=== PATIENT | male | born 1955 | race African-American/Black ===

== ENCOUNTER 2017-02-24 17:55 | Inpatient (IN) | payer MEDICARE, MEDICAID ==
[~2017-02-24] VITALS: Ht 177.8 cm; Wt 92.5 kg
[~2017-02-24 17:55] MED LIST: COR12; DIGO125T82; FURO-151; LISI40TA4
[2017-02-25] MEDS ORDERED: NITROGLYCERIN OINT 1GM/INCH UDPKT TD STA (01:24)
[2017-02-25] MEDS ORDERED: ASPIRIN 81MG TABLET PO ONE (01:30)
[2017-02-25 01:51] LABS: BASOPHILS % 0.5 % (0.0-2.0); EOSINOPHILS % 2.5 % (0.0-5.0); HEMATOCRIT. 41.6 % (42.0-52.0); HEMOGLOBIN. 14.9 g/dL (14.0-18.0); INR 1.8; MEAN CORPUSCULAR HEMOGLOBIN 31.2 pg (28.0-32.0); MEAN CORPUSCULAR VOLUME 87.4 fL (80.0-94.0); MEAN PLATELET VOLUME 8.6 fl (7.4-10.4); MONOCYTES % 7.4 % (2.0-8.0); NEUTROPHILS % 56.6 % (40.0-76.0); PARTIAL THROMBOPLASTIN TIME 32.5 sec (24.0-34.0); PLATELET 177 x1000/uL (130-400); PROTHROMBIN TIME 19.1 sec; RED BLOOD CELL COUNT 4.77 mill/uL (4.7-6.1)
[2017-02-25 01:59] LABS: CARBON DIOXIDE 29 mEq/L (21-32); CHLORIDE 106 mEq/L (98-107); TROPONIN I 0.06 ng/mL (0.00-0.04)
[2017-02-25 02:12] LABS: DIGOXIN 0.4 ng/mL (0.9-2.0)
[2017-02-25 10:06] VITALS: BP 164/112
[2017-02-25] MEDS ORDERED: CLONIDINE 0.1MG TABLET PO PRN ×2 (10:45→11:15)
[2017-02-25] MEDS ORDERED: HYDRALAZINE 20MG/ML VIAL IV PRN (11:15)
[2017-02-25 11:54] VITALS: BP 150/115
[2017-02-25] MEDS: FUROSEMIDE 40MG/4ML VIAL IVP SCH ×2 (11:57→17:13)
[2017-02-25] MEDS: LISINOPRIL 20MG TABLET PO SCH ×2 (11:57→20:45)
[2017-02-25] MEDS: CARVEDILOL 12.5MG TABLET PO SCH ×2 (11:57→20:45)
[2017-02-25 11:58] LABS: CREATINE KINASE MB FRACTION 2.4 ng/mL (0.5-3.6); TROPONIN I 0.05 ng/mL (0.00-0.04)
[2017-02-25] MEDS: AMLODIPINE 2.5MG TABLET PO SCH ×2 (11:58→20:45)
[2017-02-25] MEDS: POTASSIUM CHLORIDE 20MEQ TABLET SR PO SCH ×2 (11:59→17:14)
[2017-02-25] MEDS ORDERED: WARF6TAB22 PO (12:12)
[2017-02-25 16:00] VITALS: BP 130/94
[2017-02-25] MEDS ORDERED: WARFARIN SODIUM 3MG TABLET PO NR (18:00)
[2017-02-25 20:00] VITALS: BP 145/96
[2017-02-25 20:13] LABS: CREATINE KINASE MB FRACTION 1.8 ng/mL (0.5-3.6); TROPONIN I 0.05 ng/mL (0.00-0.04)
[2017-02-26] VITALS (8 sets, daily range): BP systolic 125–156; BP diastolic 72–113
[2017-02-26 01:13] LABS: *AMPHETAMINES SCREEN URINE NEGATIVE (NEGATIVE); *BARBITURATES SCREEN URINE NEGATIVE (NEGATIVE); *BENZODIAZEPINES SCREEN URINE NEGATIVE (NEGATIVE); *COCAINE SCREEN URINE NEGATIVE (NEGATIVE); CANNABINOID URINE SCREEN NEGATIVE (NEGATIVE); METHADONE URINE SCREEN NEGATIVE (NEGATIVE); OPIATES URINE SCREEN NEGATIVE (NEGATIVE); PHENCYCLIDINE URINE SCREEN NEGATIVE (NEGATIVE)
[2017-02-26 06:37] LABS: BASOPHILS % 0.2 % (0.0-2.0); EOSINOPHILS % 2.3 % (0.0-5.0); HEMATOCRIT. 39.3 % (42.0-52.0); HEMOGLOBIN. 13.7 g/dL (14.0-18.0); LYMPHOCYTES % 25.2 % (20.0-50.0); MEAN CORPUSCULAR HEMOGLOBIN 30.5 pg (28.0-32.0); MEAN CORPUSCULAR VOLUME 87.7 fL (80.0-94.0); MEAN PLATELET VOLUME 8.9 fl (7.4-10.4); MONOCYTES % 6.5 % (2.0-8.0); NEUTROPHILS % 65.8 % (40.0-76.0); PLATELET 161 x1000/uL (130-400); RED BLOOD CELL COUNT 4.49 mill/uL (4.7-6.1); RED CELL DISTRIBUTION WIDTH 13.7 % (11.6-14.6)
[2017-02-26 07:06] LABS: D-DIMER < 0.19 mg/L FEU (<0.50); INR 1.8; PROTHROMBIN TIME 18.7 sec
[2017-02-26 07:57] LABS: CHLORIDE 104 mEq/L (98-107)
[2017-02-26 08:28] LABS: CARBON DIOXIDE 24 mEq/L (21-32); CREATINE KINASE 118 IU/L (39-308); CREATINE KINASE MB FRACTION 1.4 ng/mL (0.5-3.6); HDL CHOLESTEROL 36 mg/dL (40-59); LDL CHOLESTEROL 72 mg/dL (5-100); TROPONIN I 0.04 ng/mL (0.00-0.04)
[2017-02-26] MEDS: FUROSEMIDE 40MG/4ML VIAL IVP SCH ×2 (08:49→18:00)
[2017-02-26] MEDS: LISINOPRIL 20MG TABLET PO SCH ×2 (08:49→20:44)
[2017-02-26] MEDS: POTASSIUM CHLORIDE 20MEQ TABLET SR PO SCH ×2 (08:49→18:00)
[2017-02-26] MEDS: CARVEDILOL 12.5MG TABLET PO SCH ×2 (08:49→20:45)
[2017-02-26] MEDS: AMLODIPINE 2.5MG TABLET PO SCH ×2 (08:49→20:45)
[2017-02-26] MEDS ORDERED: POTASSIUM CHLORIDE 20MEQ TABLET SR PO NR (14:45)
[2017-02-26] MEDS ORDERED: WARFARIN SODIUM 3MG TABLET PO NR (18:00)
[2017-02-27] VITALS: BP 150/92
[2017-02-27 04:00] VITALS: BP 145/100
[2017-02-27] MEDS: FUROSEMIDE 40MG/4ML VIAL IVP SCH ×2 (06:23→16:01)
[2017-02-27 07:02] LABS: INR 1.6; PROTHROMBIN TIME 16.3 sec
[2017-02-27 07:12] LABS: BASOPHILS % 0.2 % (0.0-2.0); EOSINOPHILS % 2.8 % (0.0-5.0); HEMOGLOBIN. 14.2 g/dL (14.0-18.0); LYMPHOCYTES % 26.4 % (20.0-50.0); MEAN CORPUSCULAR HEMOGLOBIN 30.3 pg (28.0-32.0); MEAN CORPUSCULAR VOLUME 87.4 fL (80.0-94.0); MEAN PLATELET VOLUME 8.9 fl (7.4-10.4); MONOCYTES % 6.3 % (2.0-8.0); NEUTROPHILS % 64.3 % (40.0-76.0); PLATELET 175 x1000/uL (130-400); RED BLOOD CELL COUNT 4.69 mill/uL (4.7-6.1); RED CELL DISTRIBUTION WIDTH 13.7 % (11.6-14.6)
[2017-02-27 07:27] LABS: CARBON DIOXIDE 30 mEq/L (21-32); CHLORIDE 107 mEq/L (98-107)
[2017-02-27 08:00] VITALS: BP 145/85
[2017-02-27] MEDS: LISINOPRIL 20MG TABLET PO SCH ×2 (09:31→20:37)
[2017-02-27] MEDS: AMLODIPINE 2.5MG TABLET PO SCH (09:31)
[2017-02-27] MEDS: CARVEDILOL 12.5MG TABLET PO SCH ×2 (09:31→20:37)
[2017-02-27] MEDS: POTASSIUM CHLORIDE 20MEQ TABLET SR PO SCH ×2 (09:31→16:01)
[2017-02-27 12:00] VITALS: BP 132/74
[2017-02-27] MEDS ORDERED: REGADENOSON 0.4 MG/5 ML IV ONE (13:00)
[2017-02-27 16:00] VITALS: BP 118/72
[2017-02-27] MEDS: ENOXAPARIN 100MG/ML SYR SUBCUT SCH ×2 (16:01→23:00)
[2017-02-27] MEDS: ISOSORB DINIT/HYDRALAZINE HCL 20/37.5MG TABLET PO SCH ×2 (16:02→21:49)
[2017-02-27] MEDS ORDERED: WARFARIN SODIUM 7.5MG TABLET PO SCH (18:00)
[2017-02-27] MEDS: DIGOXIN 125MCG TABLET PO SCH (18:42)
[2017-02-27 20:00] VITALS: BP 122/72
[2017-02-27] MEDS: AMLODIPINE 5MG TABLET PO SCH (20:37)
[2017-02-28] VITALS: BP 109/67
[2017-02-28 04:00] VITALS: BP 116/72
[2017-02-28] MEDS: ISOSORB DINIT/HYDRALAZINE HCL 20/37.5MG TABLET PO SCH ×3 (05:43→21:46)
[2017-02-28] MEDS: FUROSEMIDE 40MG/4ML VIAL IVP SCH ×2 (06:47→17:19)
[2017-02-28] MEDS: ENOXAPARIN 100MG/ML SYR SUBCUT SCH ×2 (06:48→21:46)
[2017-02-28 06:57] LABS: INR 1.4; PROTHROMBIN TIME 14.2 sec
[2017-02-28 07:49] LABS: CARBON DIOXIDE 27 mEq/L (21-32); CHLORIDE 103 mEq/L (98-107)
[2017-02-28] MEDS ORDERED: REGADENOSON 0.4 MG/5 ML IV ONE (07:56)
[2017-02-28 08:00] VITALS: BP 134/73
[2017-02-28 08:19] LABS: BASOPHILS % 0.3 % (0.0-2.0); EOSINOPHILS % 2.2 % (0.0-5.0); HEMATOCRIT. 40.8 % (42.0-52.0); HEMOGLOBIN. 14.1 g/dL (14.0-18.0); LYMPHOCYTES % 29.8 % (20.0-50.0); MEAN CORPUSCULAR HEMOGLOBIN 30.6 pg (28.0-32.0); MEAN CORPUSCULAR VOLUME 88.4 fL (80.0-94.0); MONOCYTES % 6.1 % (2.0-8.0); NEUTROPHILS % 61.6 % (40.0-76.0); PLATELET 178 x1000/uL (130-400); RED BLOOD CELL COUNT 4.61 mill/uL (4.7-6.1); RED CELL DISTRIBUTION WIDTH 14.2 % (11.6-14.6)
[2017-02-28] MEDS: AMLODIPINE 5MG TABLET PO SCH ×2 (09:32→21:46)
[2017-02-28] MEDS: CARVEDILOL 12.5MG TABLET PO SCH ×2 (09:32→21:46)
[2017-02-28] MEDS: LISINOPRIL 20MG TABLET PO SCH ×2 (09:33→21:47)
[2017-02-28] MEDS: POTASSIUM CHLORIDE 20MEQ TABLET SR PO SCH ×2 (09:33→17:19)
[2017-02-28 12:00] VITALS: BP 109/72
[2017-02-28 16:00] VITALS: BP 123/85
[2017-02-28] MEDS: DIGOXIN 125MCG TABLET PO SCH (17:19)
[2017-02-28] MEDS ORDERED: WARFARIN SODIUM 7.5MG TABLET PO SCH (18:00)
[2017-02-28 20:00] VITALS: BP 142/90
[2017-03-01] VITALS (8 sets, daily range): BP systolic 99–159; BP diastolic 63–95
[2017-03-01] MEDS: ISOSORB DINIT/HYDRALAZINE HCL 20/37.5MG TABLET PO SCH (06:23)
[2017-03-01] MEDS: FUROSEMIDE 40MG/4ML VIAL IVP SCH (06:25)
[2017-03-01 06:40] LABS: INR 1.4; PROTHROMBIN TIME 14.6 sec
[2017-03-01] MEDS ORDERED: ATROPINE SULFATE 1MG/ML VIAL IV PRN (08:00)
[2017-03-01] MEDS ORDERED: ONDANSETRON HCL 4MG/2ML VIAL IV PRN (08:00)
[2017-03-01] MEDS: LISINOPRIL 20MG TABLET PO SCH (08:27)
[2017-03-01] MEDS: AMLODIPINE 5MG TABLET PO SCH ×2 (09:00→20:29)
[2017-03-01] MEDS: CARVEDILOL 12.5MG TABLET PO SCH ×2 (09:00→20:29)
[2017-03-01] MEDS: POTASSIUM CHLORIDE 20MEQ TABLET SR PO SCH ×2 (09:00→17:56)
[2017-03-01 09:14] LABS: HEMATOCRIT 42.2 % (42.0-52.0); HEMOGLOBIN 14.4 g/dL (14.0-18.0)
[2017-03-01] MEDS ORDERED: RIVAROXABAN 20 MG TABLET PO SCH (17:00)
[2017-03-01] MEDS: DIGOXIN 125MCG TABLET PO SCH (17:56)
[2017-03-01] MEDS: LISINOPRIL 10MG TABLET PO SCH (20:29)
[2017-03-02 00:14] VITALS: BP 145/89
[2017-03-02 04:00] VITALS: BP 154/84
[2017-03-02 06:23] LABS: BASOPHILS % 0.3 % (0.0-2.0); EOSINOPHILS % 1.4 % (0.0-5.0); HEMATOCRIT. 42.9 % (42.0-52.0); HEMOGLOBIN. 14.8 g/dL (14.0-18.0); LYMPHOCYTES % 22.6 % (20.0-50.0); MEAN CORPUSCULAR HEMOGLOBIN 30.7 pg (28.0-32.0); MEAN PLATELET VOLUME 8.7 fl (7.4-10.4); MONOCYTES % 5.1 % (2.0-8.0); NEUTROPHILS % 70.6 % (40.0-76.0); PLATELET 210 x1000/uL (130-400); RED BLOOD CELL COUNT 4.83 mill/uL (4.7-6.1); RED CELL DISTRIBUTION WIDTH 13.9 % (11.6-14.6)
[2017-03-02 06:29] LABS: CARBON DIOXIDE 27 mEq/L (21-32); CHLORIDE 102 mEq/L (98-107)
[2017-03-02 08:00] VITALS: BP 109/80
[2017-03-02] MEDS: CARVEDILOL 12.5MG TABLET PO SCH (09:00)
[2017-03-02] MEDS: LISINOPRIL 10MG TABLET PO SCH (09:00)
[2017-03-02] MEDS: AMLODIPINE 5MG TABLET PO SCH (09:00)
[2017-03-02] MEDS: POTASSIUM CHLORIDE 20MEQ TABLET SR PO SCH (09:48)
[2017-03-02 11:01] VITALS: BP 109/80
== END 2017-03-02 12:10 | disposition home or self-care (01) | DRG 205 ==
LOC: ER 18:04 → 8WST 02-25 05:34 → EDBEDREQ 02-25 05:39 → ENRESERV 02-25 07:30
PROVIDERS: ADMIT Internal Medicine; ATTEND Internal Medicine
PROC: 4B02XTZ Measurement of Cardiac Defibrillator, External Approach (ICD-10-PCS; principal; 2017-02-27)
DX: M94.0 Chondrocostal junction syndrome [Tietze] (principal); I50.23 Acute on chronic systolic (congestive) heart failure; I42.0 Dilated cardiomyopathy; I48.2 Chronic atrial fibrillation; I11.0 Hypertensive heart disease with heart failure; I27.2 Other secondary pulmonary hypertension; R00.1 Bradycardia, unspecified; I25.10 Atherosclerotic heart disease of native coronary artery without angina pectoris; E78.5 Hyperlipidemia, unspecified; E87.6 Hypokalemia; Z95.810 Presence of automatic (implantable) cardiac defibrillator; Z79.899 Other long term (current) drug therapy; Z79.01 Long term (current) use of anticoagulants; Z59.0 Homelessness; I25.2 Old myocardial infarction; Z91.19 Patient's noncompliance with other medical treatment and regimen
CPT/HCPCS: 36415; 71010; 78452; 80048; 80053; 80061; 80162; 80305; 82550; 82553; 83735; 83880; 84443; 84484; 85014; 85018; 85025; 85379; 85610; 85730; 93005; 93017; 93306; 93970; 97112; 97116; 97162; 97760; 99285; A9500; J0461; J1650; J1940; J2405; J2785